=== PATIENT | male | born 1995 | race Caucasian/White ===

== ENCOUNTER 2023-10-15 12:45 | Emergency (ER) | payer MEDICAID ==
[~2023-10-15] VITALS: Ht 190.5 cm; Wt 97.5 kg
[2023-10-15 13:02] VITALS: BP_SYST 122; PULSE 96; RESP 18; TEMP 97.5; O2SAT 97
[2023-10-15] MEDS ORDERED: IBUPROFEN 800 MG TABLET PO ONE (15:00)
[2023-10-15] MEDS ORDERED: cephALEXin 500 MG CAPSULE PO ONE (15:15)
[2023-10-15] MEDS ORDERED: HYDROcodone/ACETAMIN 5-325 MG TAB (NORCO/ VICODIN) PO ONE (15:15)
[2023-10-15] MEDS ORDERED: IBUP-1971 PO (15:18)
[2023-10-15] MEDS ORDERED: HYDR-3917 PO (15:18)
[2023-10-15] MEDS ORDERED: CEPH-548 PO (15:18)
== END 2023-10-15 15:25 | disposition home or self-care (01) ==
LOC: SED 12:45
DX: S62.316A Displaced fracture of base of fifth metacarpal bone, right hand, initial encounter for closed fracture (principal); W22.01XA Walked into wall, initial encounter; Y93.89 Activity, other specified; Y92.89 Other specified places as the place of occurrence of the external cause; Y99.8 Other external cause status
CPT/HCPCS: 99283

== ENCOUNTER 2024-04-15 12:56 | Emergency (ER) | payer MEDICAID ==
[~2024-04-15] VITALS: Ht 190.5 cm; Wt 106.1 kg
[2024-04-15 12:56] VITALS: BP_SYST 145; PULSE 96; RESP 19; TEMP 97.5; O2SAT 94
[~2024-04-15 12:56] MED LIST: CEPH-548 PO; HYDR-3917 PO; IBUP-1971 PO
[2024-04-15] MEDS: BACITRACIN 1 GM OINT TP ONE (13:42)
[2024-04-15] MEDS: LIDOCAINE 1% 10 MG/ML, 20 ML MDV INJ ONE (13:42)
[2024-04-15] MEDS: DIPHTH,PERTUSS(ACELL),TET VAC 0.5 ML VIAL (Tdap) I.M. ONE (14:31)
[2024-04-15 14:34] VITALS: BP_SYST 145; PULSE 96; RESP 19; TEMP 97.5; O2SAT 94
== END 2024-04-15 14:39 | disposition home or self-care (01) ==
LOC: SED 12:56
DX: S61.214A Laceration without foreign body of right ring finger without damage to nail, initial encounter (principal); S61.217A Laceration without foreign body of left little finger without damage to nail, initial encounter; Z23 Encounter for immunization; Z79.899 Other long term (current) drug therapy; Z79.2 Long term (current) use of antibiotics; W25.XXXA Contact with sharp glass, initial encounter; Y93.89 Activity, other specified; Y92.89 Other specified places as the place of occurrence of the external cause; Y99.8 Other external cause status
CPT/HCPCS: 90715; 99283; J2001

== ENCOUNTER 2024-04-22 15:42 | Emergency (ER) | payer MEDICAID ==
[~2024-04-22] VITALS: Ht 190.5 cm; Wt 108.9 kg
[2024-04-22 15:42] VITALS: BP_SYST 125; PULSE 83; RESP 18; TEMP 97.2; O2SAT 99
[2024-04-22 17:18] VITALS: BP_SYST 125; PULSE 83; RESP 18; TEMP 97.2; O2SAT 99
== END 2024-04-22 17:05 | disposition home or self-care (01) ==
LOC: SED 15:42
DX: S05.11XA Contusion of eyeball and orbital tissues, right eye, initial encounter (principal); S61.214D Laceration without foreign body of right ring finger without damage to nail, subsequent encounter; S61.217D Laceration without foreign body of left little finger without damage to nail, subsequent encounter; Z79.899 Other long term (current) drug therapy; Z79.2 Long term (current) use of antibiotics; W10.8XXA Fall (on) (from) other stairs and steps, initial encounter; Y93.89 Activity, other specified; Y92.89 Other specified places as the place of occurrence of the external cause; Y99.8 Other external cause status
CPT/HCPCS: 70450-TC; 99284